=== PATIENT | female | born 1960 | race Caucasian/White ===

== ENCOUNTER 2019-04-18 19:26 | Emergency (ER) | payer MEDICARE ==
[~2019-04-18 19:26] MED LIST: ISOVUE-370 76%-LOCM 1 ML ONE
[2019-04-18] MEDS ORDERED: Aspirin Chewable 81 MG TAB ONE (19:49)
[2019-04-18] MEDS ORDERED: Nitroglycerin 2% Ointment 1 INCH/1 GM Packet ONE (19:49)
[2019-04-18] MEDS ORDERED: Ondansetron PF 4 MG/2 ML Vial ONE (19:49)
[2019-04-18 19:51] LABS: #Eosinphils 0.5 thou/uL (0.0-0.7); #Lymphocytes 2.9 thou/uL (1.20-3.40); #Monocytes 0.7 thou/uL (0.11-0.59); #Neutrophils 6.1 thou/uL (1.40-6.50); %Basophils 0.4 % (0.0-1.0); %Eosinophils 4.6 % (0.0-10.0); %Lymphocytes 28.3 % (21.0-51.0); %Monocytes 7.1 % (0.0-10.0); %Neutrophils 59.6 % (42.0-75.0); Hemoglobin 13.8 g/dL (12.0-16.0); Mean Corpuscular HGB CONC 33.4 g/dL (32.0-36.0); Mean Corpuscular Hemoglobin 29.3 pg (27.0-31.0); Mean Corpuscular Volume 87.6 fL (78.0-98.0); Mean Platelet Volume 7.1 fL (7.4-10.4); Platelet Count 296 thou/uL (130-400); Red Blood Cell (RBC) Count 4.72 mill/uL (4.20-5.40); White Blood Cell (WBC) Count 10.1 thou/uL (4.8-10.8)
[2019-04-18 20:12] LABS: ALT (SGPT) 15 U/L (8-55); AST (SGOT) 19 U/L (5-34); Albumin 3.9 g/dL (3.4-4.8); Alkaline Phosphatase 81 U/L (40-150); Anion Gap 16 mmol/L (10-20); BUN (Urea Nitrogen) 26 mg/dL (9.8-20.1); Bilirubin, Total 0.4 mg/dL (0.2-1.2); CK (CPK) 81 U/L (29-168); Calc. Creatinine Clearance 0 mL/min (70-130); Carbon Dioxide 20 mmol/L (23-31); Chloride 102 mmol/L (98-107); Estimated GFR-MDRD 45; Globulin 3.7 g/dL (2.4-3.5); Glucose 117 mg/dL (80-115); Potassium 4.1 mmol/L (3.5-5.1); Protein, Total 7.6 g/dL (6.0-8.3); Sodium 134 mmol/L (136-145)
--- NOTE | 2019-04-18 20:15 | CT ---
CT brain. HISTORY: Left-sided arm pain and chest pain. Noncontrast enhanced CT images brain obtained. No evidence of intracranial masses, hemorrhages stroke s or contusion seen. Impression normal CT brain.
--- NOTE | 2019-04-18 20:55 | RAD ---
2 views left forearm. HISTORY: Left arm pain. AP and lateral views left forearm obtained. No evidence of acute fractures or bony lesions seen. Previous surgical screws seen in the lateral asp ect of the distal left humerus. IMPRESSION: No evidence of acute left forearm abnormalities.
--- NOTE | 2019-04-18 21:28 | RAD ---
SINGLE VIEW CHEST: Date: 04/18/19 COMPARISON: None. HISTORY: Chest pain. FINDINGS: Single view of the chest shows a normal sized cardiomediastinal silhouette. There are diffuse reticul onodular opacities in the lungs. There may be small bilateral pleural effusions. IMPRESSION: Nonspecific diffuse reticulonodular opacities. This could represent an atypical infection, pulmonary edema, or chronic interstitial lung disease. POS: [facility]
--- NOTE | 2019-04-18 21:29 | RAD ---
2 VIEWS LEFT HUMERUS: Date: 04/18/19 COMPARISON: None. HISTORY: Left arm pain that radiates to the left chest. FINDINGS: 2 views of the left humerus show no evidence of acute fracture or dislocation. Screws are seen in the distal humerus. Increased interstitial lung markings are seen in the left lung. IMPRESSION: No evidence of acute osseous abnormality. POS: [facility]
--- NOTE | 2019-04-18 22:08 | CT ---
Contrast-enhanced CTA chest. HISTORY: Arm pain and recent history of fall. Contrast-enhanced CTA chest demonstrates possible coronary artery calcifications versus intra-arteria l contrast. The aorta demonstrates some minimal areas of calcific effusions. No evidence of pleural or pericardial effusion seen. Some emphysematous and interstitial changes compatible with interstitial fibrosis seen throughout the lungs. No evidence of filling defects seen in the pulmonary arteries to suggest pulmonary emboli. IMPRESSION: no evidence of pulmonary emboli.
== END 2019-04-18 22:30 | disposition left against medical advice (07) ==
LOC: ERS 19:26
DX: R07.9 Chest pain, unspecified (principal); R06.00 Dyspnea, unspecified; R11.2 Nausea with vomiting, unspecified; M19.90 Unspecified osteoarthritis, unspecified site; E78.5 Hyperlipidemia, unspecified; F31.9 Bipolar disorder, unspecified; F17.210 Nicotine dependence, cigarettes, uncomplicated; J44.9 Chronic obstructive pulmonary disease, unspecified; Z79.899 Other long term (current) drug therapy
CPT/HCPCS: 70450; 71045; 71275; 80053; 82550; 83880; 84484; 85025; 93005; 94760; 96361; 96374; 96375; J2405; Q9966